=== PATIENT | male | born 1955 | race Two or more races ===

== ENCOUNTER 2025-06-13 07:34 | Day surgery (SDC) | payer MEDICARE, SELFPAY ==
--- OUTSIDE RECORDS SUMMARY | 2024-11-18 06:40 | XMS_ITS ---
Author Organization [facility] Address [address] [place] [id number] Care Team Providers Care Sleeping Car Service Attendant Name Role Phone Fermin Tanner MD Primary Care Provider Zaki Carrion [phone] REASON FOR VISIT Patient presents today for a colon screening Encounters Encounter Location Date Provider Diagnosis [facility] [address] [place] [id number] 11/18/2024 Zaki Villagomez Plan Of Treatment Next Appt Details Provider Name:Zaki Villagomez , 06/13/2025 09:20:00 AM, [address] [place] [address] , [place], [place], [phone], Progress Notes * SAMUEL CASILLASOB:1954 (69 yo M)Acc No.[id number]:11/18/2024 Progress Notes Patient: ANN COLEYO Provider: Espinoza Villagomez MD :1955 A ge:69 Y S ex:Male Date:11/18/2024 Address:[address] [place], [place] [id number] Pcp:Fermin Tanner MD Subjective: * Chief Complaints: * 1 . Patient presents today for a colon screening. * Medical History: Objective: * Vitals: Assessment: Plan: * Treatment: * * The named appointment provid er may or may not be the originator of this progress note, and it is not deemed complete until electronically signed by the appointment provider. Sign off status: Pending * Provider: Espinoza Villagomez MD Date: 0 11/18/2024 Generated for Austin kendall/Mallory/Nathan on: 0 05/09/2025 03:14 PM EDT
[2025-06-09 14:26] VITALS: BMI 24.6
--- NOTE | 2025-06-10 09:34 | HO.ANESPROP2 ---
Documented by User: Alana Gomes NP 06/10/25 09:35 HPI - Anesthesia Eval Consult details Narrative: 69yo M for Colonoscopy [facility] Past Medical History Medical History No pertinent past medical history Surgical History Surgical History H/O colonoscopy Social History Social History Are you a primary home day care provider to a significant other at home: No Do you presently have visiting nurse or other home services: No Patient Tobacco Use Status: Never used Tobacco Have you been hit, kicked, punched, or otherwise hurt by someone within the past year? If so, by whom?: No Are you DNR?: No Advance Directives: No Advance Directives Information Provided: Yes Poor oral hygiene: No Meds Allergies Allergy/AdvReac Type Severity Reaction Status Date / Time No Known Allergies Allergy Verified 06/13/25 07:48 Home Medications ?Medication ?Instructions ?Recorded ?Confirmed ?Last Taken ?Type No Known Home Meds 06/09/25 06/09/25 Unknown History Exam Height,Weight and Vital Signs: Height 5 ft 7 in Weight 71.305 kg Assessment and Plan Assessment Anesthesia Assessment: Chart Reviewed Documented by User: Starr Goode MD 06/13/25 08:19 PMFSH Past Medical History Medical History No pertinent past medical history Family History Family history of problems with anesthesia: No Surgical History Surgical History H/O colonoscopy History of Problems with Anesthesia: No Social History Social History Are you a primary home day care provider to a significant other at home: No Do you presently have visiting nurse or other home services: No Patient Tobacco Use Status: Never used Tobacco Have you been hit, kicked, punched, or otherwise hurt by someone within the past year? If so, by whom?: No Are you DNR?: No Advance Directives: No Advance Directives Information Provided: Yes Poor oral hygiene: No Meds Allergies Allergy/AdvReac Type Severity Reaction Status Date / Time No Known Allergies Allergy Verified 06/13/25 07:48 Home Medications ?Medication ?Instructions ?Recorded ?Confirmed ?Last Taken ?Type No Known Home Meds 06/09/25 06/09/25 Unknown History Exam Airway Mallampati Class: II TM Dist: >3cm Neck ROM: Full Heart: rrr Lungs: cta Assessment and Plan Assessment Anesthesia Assessment: Anesthesia Plan Discussed Final Anesthetic Review Family History of Problems with Anesthesia: No History of Problems with Anesthesia: No NPO: Yes ASA Class: I Final Preanesthetic Review: No Changes in Pt Med Stat, Meds/Allgs Chart Reviewed, Consent Obtained/Reviewed and Anes Risks/Benef Reviewed Patient Risk: Low Procedure Risk: Low Anesthetic Plan Anesthetic Plan: MAC: Disposition: Standard PACU
[2025-06-13 07:47] VITALS: BMI 23.2
[2025-06-13 08:00] VITALS: BP 142/74; PULSE 68; RESP 16; TEMP 36.7; O2SAT 99
[2025-06-13 09:24] VITALS: BP 94/50; PULSE 63; RESP 16; TEMP 36.2; O2SAT 100
--- NOTE | 2025-06-13 09:25 | P.BOP_ITS ---
Brief Operative Note Date of Service: 06/13/25 Pre-op diagnosis: Screening Post-op diagnosis: other (Diverticulosis) Procedure: Colonoscopy to the cecum and TI Surgeon: Zaki Villagomez MD Anesthesia: MAC Was an Comprehensive Ophthalmologist used for this Procedure?: No Estimated blood loss (mL): 0 Pathology: none sent Condition: stable Disposition: PACU
[2025-06-13 09:39] VITALS: BP 108/57; PULSE 75; RESP 16; TEMP 36.6; O2SAT 100
--- NOTE | 2025-06-13 10:40 | OP_ITS ---
DATE OF SERVICE: 06/13/2025 SURGEON: Zaki Villagomez MD INDICATIONS: The patient presents for evaluation of colorectal cancer screening. Full consent has been obtained from him for this, including risks of bleeding and perforation. PREOPERATIVE DIAGNOSIS: Colorectal cancer screening. POSTOPERATIVE DIAGNOSIS: PROCEDURE PERFORMED: Colonoscopy to the cecum and terminal ileum. ESTIMATED BLOOD LOSS: COMPLICATIONS: ANESTHESIA: Medication used, monitored anesthesia care. ASSISTANTS: SPECIMENS: POSTOPERATIVE DIAGNOSES: Colorectal cancer screening, diverticulosis, and internal hemorrhoids. DESCRIPTION OF PROCEDURE: The patient was placed in the left lateral decubitus position. The digital rectal exam revealed no abnormalities. The Olympus video pediatric colonoscope was entered into the rectum and advanced easily to the cecum. Once in the cecum, I did identify normal-appearing cecal pouch with appendiceal orifice and a normal-appearing ileocecal valve. The terminal ileum was cannulated and appeared normal. The scope was withdrawn back in the colon. The entire cecum and ileocecal valve appeared normal. The scope was slowly withdrawn assessing all mucosal surfaces carefully. Preparation was excellent. I did not visualize any sign of polyps, colitis, nor angiodysplasia. There was a mild amount of sigmoid diverticulosis. In the rectum, scope was retroflexed visualizing internal hemorrhoids, but no other pathology. The rectal mucosa appeared normal. The scope was straightened and withdrawn from the patient. He tolerated the procedure well and was returned to the recovery area in stable condition. IMPRESSION: 1. Diverticulosis. 2. Internal hemorrhoids. PLAN: Given his age and this negative exam, with no family history of colon cancer, I do not think he would need any further screening colonoscopies. He would otherwise see me on a p.r.n. basis. MD HANANE Suero/RUBEN / [phone]
== END 2025-06-13 10:35 | disposition home or self-care (01) ==
PROVIDERS: PCP Internal Medicine; Visit Provider Internal Medicine
PROC: 0DJD8ZZ Inspection of Lower Intestinal Tract, Via Natural or Artificial Opening Endoscopic (ICD-10-PCS; CPT 45378; principal; 2025-06-13 08:30)
DX: Z12.11 Encounter for screening for malignant neoplasm of colon (principal); K57.30 Diverticulosis of large intestine without perforation or abscess without bleeding; K64.8 Other hemorrhoids
CPT/HCPCS: G0121; J2704